=== PATIENT | male | born 1960 | race Caucasian/White ===

== ENCOUNTER 2016-08-03 03:15 | Emergency (ER) | payer OTHER ==
[~2016-08-03] VITALS: Ht 157.5 cm; Wt 57.5 kg
[~2016-08-03 03:15] MED LIST: CYCL-319 PO; IBUP800T25 PO
[2016-08-03 03:35] VITALS: Ht 157.5 cm; Wt 57.5 kg
[2016-08-03] MEDS ORDERED: ONDANSETRON 4 MG INJ IV STA (04:02)
[2016-08-03] MEDS ORDERED: SOD CHLORIDE 0.9% 1,000 ML IV STA (04:02)
[2016-08-03] MEDS ORDERED: morphine 4 MG/ML VIAL IV STA (04:02)
[2016-08-03 04:31] VITALS: TEMP 98
[2016-08-03 04:40] LABS: ADD SCAN DIFF NO
[2016-08-03 04:43] LABS: BASOPHIL # 0.1 10^3/ul (0.0-0.1); BASOPHILS % 0.7 % (0.0-2.0); EOSINOPHILS # 0.4 10^3/ul (0.0-0.5); EOSINOPHILS % 4.3 % (0.0-7.0); HEMATOCRIT 44.1 % (42.0-52.0); LYMPHOCYTES # 3.5 10^3/ul (0.8-2.9); LYMPHOCYTES % 39.1 % (15.0-51.0); MEAN CORPUSCULAR VOLUME 88.2 fl (82.0-101.0); MEAN PLATELET VOLUME 10.2 fl (7.4-10.4); MONOCYTES % 10.9 % (0.0-11.0); NEUTROPHILS % 44.8 % (39.0-77.0); PLATELET COUNT 224 10^3/UL (140-415)
--- NOTE | 2016-08-03 04:45 | RADRPT ---
PROCEDURE: Chest. CLINICAL INDICATION: Chest pain. TECHNIQUE: Single frontal view of the chest was obtained. COMPARISON: None. FINDINGS: The cardiac silhouette is within normal limits. The aortic arch is unremarkable. There is no focal consolidation, vascular congestion or pleural effusion. There is no pneumothorax. There is prior f ixation of the right clavicle with plate and screws. IMPRESSION: No evidence for active cardiopulmonary disease. .Randell Mancera MD, MD Date Time Electronically viewed and signed by .Randell Mancera MD, on 08/03/2016 04:45 .T/
[2016-08-03 04:56] LABS: CHLORIDE 102 mmol/L (97-110); SODIUM 142 mmol/L (135-144)
[2016-08-03 04:57] LABS: POTASSIUM 4.1 mmol/L (3.5-5.1)
[2016-08-03 04:59] LABS: ANION GAP 17 (8-16); BLOOD UREA NITROGEN 21 mg/dl (7-20); CARBON DIOXIDE 27 mmol/L (21-31); CREATININE 0.68 mg/dl (0.61-1.24)
[2016-08-03 05:00] LABS: CALCIUM 9.1 mg/dl (8.4-10.2); GLUCOSE 103 mg/dl (70-220)
[2016-08-03 05:08] LABS: INR 0.93; PARTIAL THROMBOPLASTIN TIME 28.1 Sec (25.0-35.0); PROTIME 12.5 Sec (12.2-14.2)
--- NOTE | 2016-08-03 05:11 | ERA ---
ER Documentation Chief Complaint Date/Time DATE: 08/03/16 TIME: 05:10 Chief Complaint right chest pressure pain radiating to back,SOB HPI This is a 56 female comes in with chest pressure radiating to his back. Patient also with mild shortness of breath. Pain is mild to moderate intensity. Is been going on for 2 hours. No alleviating factors. No radiations. No associated other factors. ROS All systems reviewed and are negative except as per history of present illness. Medications Home Meds Reported Medications Cyclobenzaprine Hcl* (Cyclobenzaprine Hcl*) 10 Mg Tablet, 10 MG PO BID, TAB 04/23/14 Ibuprofen* (Motrin*) 800 Mg Tab, 800 MG PO Q8 Y for PAIN, TAB 04/23/14 Allergies Allergies: Coded Allergies: No Known Allergy (Unverified , 08/20/14) PMhx/Soc History of Surgery: Yes (CLAVICLE SX) Anesthesia Reaction: No Hx Neurological Disorder: No Hx Respiratory Disorders: No Hx Cardiac Disorders: Yes (HTN) Hx Psychiatric Problems: No Hx Miscellaneous Medical Probl: Yes (CHRONIC NECK PAIN) Hx Alcohol Use: No Hx Substance Use: No Hx Tobacco Use: No Smoking Status: Never smoker Physical Exam Vitals Vital Signs Date Time Temp Pulse Resp B/P Pulse Ox O2 Delivery O2 Flow Rate FiO2 08/03/16 04:31 98.0 57 18 118/88 96 Room Air 08/03/16 04:04 Nasal Cannula 2 08/03/16 03:35 97.9 70 18 131/85 95 Physical Exam Const: [] Head: Atraumatic Eyes: Normal Conjunctiva ENT: Normal External Ears, Nose and Mouth. Neck: Full range of motion..~ No meningismus. Resp: Clear to auscultation bilaterally Cardio: Regular rate and rhythm, no murmurs Abd: Soft, non tender, non distended. Normal bowel sounds Skin: No petechiae or rashes Back: No midline or flank tenderness Ext: No cyanosis, or edema Neur: Awake and alert Psych: Normal Mood and Affect Result Diagram: 08/03/1635608/03/16356 Results 24 hrs Laboratory Tests Test 08/03/16 03:57 Activated Partial Thromboplast Time 28.1Sec Anion Gap Pending Basophils # 0.110^3/ul Basophils % 0.7% Blood Urea Nitrogen Pending Calcium Level Pending Carbon Dioxide Level Pending Chloride Level 102mmol/L Creatinine Pending Eosinophils # 0.410^3/ul Eosinophils % 4.3% Glucose Level Pending Hematocrit 44.1% Hemoglobin 15.0g/dl INR International Normalized Ratio 0.93 Lymphocytes # 3.510^3/ul Lymphocytes % 39.1% Mean Corpuscular Hemoglobin 30.0pg Mean Corpuscular Hemoglobin Concent 34.0g/dl Mean Corpuscular Volume 88.2fl Mean Platelet Volume 10.2fl Monocytes # 1.010^3/ul Monocytes % 10.9% Neutrophils # 4.010^3/ul Neutrophils % 44.8% Nucleated Red Blood Cells # 0.010^3/ul Nucleated Red Blood Cells % 0.0/100WBC Platelet Count 63958^3/UL Potassium Level 4.1mmol/L Prothrombin Time 12.5Sec Prothrombin Time Ratio 1.0 Red Blood Count 5.0010^6/ul Red Cell Distribution Width 14.0% Sodium Level 142mmol/L Troponin I Pending White Blood Count 9.010^3/ul Current Medications Medications (Trade) Dose Ordered Sig/Fran Route PRN Reason Start Time Stop Time Status Last Admin Dose Admin Sodium Chloride (NS) 1,000 ml @ 1,000 mls/hr Q1H STAT IV 08/03/16 04:02 08/03/16 05:01 DC Morphine Sulfate (morphine) 4 mg ONCE STAT IV 08/03/16 04:02 08/03/16 04:05 DC Ondansetron HCl (Zofran Inj) 4 mg ONCE STAT IV 08/03/16 04:02 08/03/16 04:05 DC Procedures/MDM Chest X-ray 1V Interpreted by me: Soft Tissue: No acute abnormalities Bones: No acute abnormalities Mediastinum/Cardiac Silhouette/Lungs: No acute abnormalities EKG: Rate/Rhythm: Normal Sinus Rhythm QRS, ST, T-waves: No changes consistent w/ acute ischemia Impression: No evidence of ischemia or arrhythmia Patient's symptoms are concerning for cardiac cause will require inpatient workup and continuous monitoring. Further w/u for ischemia, arrhythmia, PE or dissection will be deferred to the inpatient team. Accepting Care Team: Current data and ongoing care discussed. Time: 5:30 AM Primary Provider: Hospitalist Consulting: [ELIUD] Outstanding Data: none Departure Diagnosis: Primary Impression: Chest pain Qualified Code: I20.9 - Ischemic chest pain Condition: Serious SUZETTE AMOS Aug 03, 2016 05:11
[2016-08-03 05:23] LABS: TROPONIN-I < 0.012 ng/ml (0.00-0.12)
--- NOTE | 2016-08-03 07:09 | QN ---
Documentation Comment The patient has been waiting in the emergency department for approximately 4 hours. He no longer wants to stay and wants to leave AGAINST MEDICAL ADVICE. He is already admitted to the hospital but says that he needs to go move his car. He understands the risks of leaving AGAINST MEDICAL ADVICE. He should follow-up with his primary doctor as soon as possible. He can return to the ER for any worsening symptoms. CARLYLE RENDON MD Aug 03, 2016 07:09
[2016-08-03 07:25] VITALS: BP 104/81; PULSE 58; RESP 18
== END 2016-08-03 07:25 | disposition left against medical advice (07) ==
LOC: E/R 03:15
DX: I20.9 Angina pectoris, unspecified (principal); I10 Essential (primary) hypertension
CPT/HCPCS: 36415; 71010; 80048; 84484; 85025; 85610; 85730; 93005; J7030; Z7502; J2270; J2405